=== PATIENT | female | born 1995 | race Caucasian/White ===

== ENCOUNTER 2021-07-12 12:19 | Outpatient (CLI) | payer BC, MEDICAID, SELFPAY ==
[2021-07-12 13:55] LABS: Absolute Lymphocyte Count 2.26 X10^3/uL (0.83-4.51); Absolute Neutrophil Count 6.6 X10^3/uL (2.0-7.7); Basophil# 0.02 X10^3/uL; Basophil% 0.2 % (0-1); Color, Urine Yellow (Yellow); Eosinophil# 0.16 X10^3/uL; Eosinophils% 1.7 % (0-5); Glucose, Dipstick Normal (Normal); Hematocrit 38.3 % (37-47); Hemoglobin 13.4 g/dL (12.0-15.0); Ketone-Dipstick Negative (Negative); Leukocyte Esterase-Dipstick 25 /ul (Negative); Lymphocyte # 2.26 X10^3/ul (0.83-4.51); Lymphocyte % 23.5 % (19-41); Mean Platelet Vol. 9.1 fl (6.2-12.0); Monocyte# 0.52 X10^3/uL; Monocyte% 5.4 % (0-10); NRBC Flagged by Analyzer 0 % (0-5); Neutrophil # 6.62 X10^3/uL (2.7-7.7); Nitrite-Dipstick Negative (Negative); Occult Blood-Urine Negative /ul (Negative); Platelet Count 237 K/mm3 (150-450); Protein-Dipstick Negative (Negative); RBC Distribution Width CV 12.7 % (11.6-14.6); RBC Distribution Width SD 36.3 fl (35.1-43.9); Red Blood Count 4.79 M/mm3 (4.2-5.4); Specific Gravity, Urine 1.015 (1.002-1.030); Urine Bilirubin Dipstick Negative (Negative); Urine Clarity Clear (Clear); Urine Urobilinogen Normal (Normal); White Blood Count 9.6 K/mm3 (4.4-11.0)
[2021-07-12 14:08] LABS: Amphetamine Urine VISTA NEGATIVE (<1000 ng/mL); Barbiturate Urine VISTA NEGATIVE (< 200 ng/mL); Benzodiazepine Urine VISTA NEGATIVE (< 200 ng/mL); Cocaine Urine VISTA NEGATIVE (< 300 ng/mL); Ecstacy Urine VISTA NEGATIVE (< 500 ng/mL); Methadone Urine VISTA NEGATIVE (< 300 ng/mL); PCP Urine VISTA NEGATIVE (< 25 ng/mL); THC Urine VISTA POSITIVE (< 50 ng/mL); Vista UDS pH Range 6
[2021-07-12 15:39] LABS: HIV - WCH Non-Reactive (Nonreactive); Hepatitis B Surface Antigen Non-Reactive (Nonreactive); Hepatitis C Antibody Non-Reactive (Nonreactive); Rubella IgG Reactive (Nonreactive); Syphilis Antibodies Non-reactive
[2021-07-16 07:07] LABS: Chlamydia By Nucleic Acid AMP Negative (Negative)
[2021-07-16 13:34] LABS: Gonococcus By Nucleic Acid AMP Negative (Negative)
[2021-07-19 14:30] LABS: HPV Reflexed? NOT INDICATED
== END 2021-07-12 23:59 | disposition home or self-care (01) ==
LOC: WOBLAB 12:23
PROVIDERS: Visit Provider Obstetrics & Gynecology
DX: Z34.81 Encounter for supervision of other normal pregnancy, first trimester (principal); Z12.4 Encounter for screening for malignant neoplasm of cervix; Z11.3 Encounter for screening for infections with a predominantly sexual mode of transmission
CPT/HCPCS: 36415; 80307; 81002; 84443; 85025; 86703; 86762; 86780; 86803; 87086; 87088; 87340; 87491; 87591; 88175; G0145

== ENCOUNTER → 2021-11-09 | Outpatient (CLI) | payer BC, MEDICAID, SELFPAY ==
[2021-11-09 12:42] LABS: Hematocrit 36.3 % (37-47); Mean Corp Hgb Conc 33.1 g/dL (32-36); Mean Corpuscular Volume 78.7 fL (81-99); Mean Platelet Vol. 9.1 fl (6.2-12.0); Platelet Count 217 K/mm3 (150-450); RBC Distribution Width CV 13.8 % (11.6-14.6); RBC Distribution Width SD 39.1 fl (35.1-43.9); Red Blood Count 4.61 M/mm3 (4.2-5.4); White Blood Count 9.7 K/mm3 (4.4-11.0)
[2021-11-09 12:49] LABS: Glucose Challenge Gest 1H 50g 174 mg/dL (70-140)
== END | disposition home or self-care (01) ==
PROVIDERS: Visit Provider Student in an Organized Health Care Education/Training Program
DX: Z34.83 Encounter for supervision of other normal pregnancy, third trimester (principal)
CPT/HCPCS: 36415; 82950; 85027

== ENCOUNTER → 2021-11-13 | Outpatient (CLI) | payer BC, MEDICAID, SELFPAY ==
[2021-11-13 09:24] LABS: Glucose GTT-Gestation. Fasting 86 mg/dL (<105)
[2021-11-13 11:05] LABS: Glucose GTT-Gestational 1 Hr 184 mg/dL (<190)
[2021-11-13 12:23] LABS: Glucose GTT-Gestational 3 Hr 121 L (<145)
[2021-11-13 12:23] LABS: Glucose GTT-Gestational 2 Hr 158 mg/dL (<165)
== END | disposition home or self-care (01) ==
PROVIDERS: Visit Provider Student in an Organized Health Care Education/Training Program
DX: O24.912 Unspecified diabetes mellitus in pregnancy, second trimester (principal); Z3A.00 Weeks of gestation of pregnancy not specified
CPT/HCPCS: 36415; 82951; 82952

== ENCOUNTER 2022-01-10 12:15 | Outpatient (CLI) | payer BC, MEDICAID, SELFPAY ==
[2022-01-10] VITALS (11 sets, daily range): BP systolic 130–153; BP diastolic 80–94; PULSE 85–111; TEMP 36.8; BMI 39.9
[2022-01-10 13:11] LABS: Hematocrit 35.5 % (37-47); Hemoglobin 11.7 g/dL (12.0-15.0); Mean Corpuscular Hgb 25.2 pg (27.0-32.0); Mean Corpuscular Volume 76.3 fL (81-99); Mean Platelet Vol. 9.1 fl (6.2-12.0); Platelet Count 204 K/mm3 (150-450); RBC Distribution Width CV 14.8 % (11.6-14.6); RBC Distribution Width SD 40.2 fl (35.1-43.9); Red Blood Count 4.65 M/mm3 (4.2-5.4); White Blood Count 10.5 K/mm3 (4.4-11.0)
[2022-01-10 13:35] LABS: Creatinine, Urine (random) < 13.00 mg/dL (NO RANGE EST.); Protein, Urine (Random) < 6.0 mg/dL (<11.9)
[2022-01-10 13:46] LABS: AST(SGOT) 11 U/L (15-37); Alanine Aminotransfer ALT/SGPT 13 U/L (13-56); Creatinine, Serum 0.53 mg/dL (0.55-1.02); EST Glomerular Filtration Rate 148 mL/min (>60); Est Glom Filt Rate - Afr Amer 179 mL/min (>60); Uric Acid 4.6 mg/dL (2.6-6.0)
--- NOTE | 2022-01-10 18:03 | OB.TRI.NOTE ---
HPI - General HPI Narrative ANN VALDEZ, is a 26 F who presents with elevated Blood pressures PFSH PFSH Home Medications vits,calcium no.78-iron fumarate-folic acid 29 mg-1 mg tablet (Prenatabs FA) 1 tab PO DAILY supplement 04/18/16 [History Last Taken 01/10/22] Allergy/AdvReac Type Severity Reaction Status Date / Time No Known Allergies Allergy Verified 01/10/22 14:45 Social History Smoking Status: Light Smoker (<10/day) History Elective abortions Hx Para 0 Spontaneous abortions Hx # Term Pregnancies Ectopic pregnancies Hx # Pregnancies Multiple births # of living children Assessment & Plan (1) : PLAN: Pt with 36wk elevated BP's non severe range. labs within normal limits. Asymptomatic. Okay to discharge home with precautions
== END 2022-01-10 15:47 | disposition home or self-care (01) ==
LOC: WPOUT 12:21 → WP 12:21
PROVIDERS: Student in an Organized Health Care Education/Training Program; Visit Provider Obstetrics & Gynecology
DX: O26.893 Other specified pregnancy related conditions, third trimester (principal); R03.0 Elevated blood-pressure reading, without diagnosis of hypertension; O99.333 Smoking (tobacco) complicating pregnancy, third trimester; F17.210 Nicotine dependence, cigarettes, uncomplicated; Z3A.36 36 weeks gestation of pregnancy
CPT/HCPCS: 36415; 59025; 59050; 82565; 82570; 84156; 84450; 84460; 84550; 85027; 87081; 87086; 87088; 99218; G0378

== ENCOUNTER 2022-01-18 06:50 | Inpatient (IN) | payer BC, MEDICAID, SELFPAY ==
[2022-01-18] VITALS (38 sets, daily range): BP systolic 124–181; BP diastolic 58–96; PULSE 66–229; TEMP 36.1–36.6; O2SAT 80–98; BMI 40.4
--- NOTE | 2022-01-18 07:16 | HP.PCM.OB_ITS ---
History and Physical Date of Admission: 01/18/22 HPI: 26-year-old G2, P1 at 37/1 weeks, THOM 02/07/2022 by first trimester ultrasound, admitted for induction of labor for gestational hypertension. Denies regular contractions, leaking of fluid, vaginal bleeding. Reports movement. Denies headache, vision changes, chest pain or shortness of breath, nausea or vomiting, diarrhea constipation, fevers or chills. 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 40-week G2: Current Medical history: Denies Surgical history: 1. Tonsillectomy Medications: 1. vitamin Allergies: No known drug allergies, allergic to grape juice Social history: Former smoker, denies alcohol or drug use Family history: Noncontributory Review of system: Negative otherwise stated above Physical exam: Vitals pending General: No acute distress HEENT: Normal cephalic/atraumatic, PERRLA Cardiorespiratory: No increased effort Abdomen: Soft, nontender, gravid Extremities: +1 pedal edema Musculoskeletal: Strength 5 out of 5 throughout all extremities Neurologic: Cranial nerves II through XII grossly intact, no focal deficits Cervical exam: 1 cm/50/-3 yesterday in office heart rate/toco pending panel: Syphilis negative Hepatitis B/hepatitis C negative HIV negative Gonorrhea/chlamydia negative Rubella immune A positive GBS negative on 01/10 Labs pending today: CBC, T&S, CMP Assessment/plan:26-year-old G2, P1 at 37/1 weeks, THOM 02/07/2022 by first trimester ultrasound, admitted for induction of labor for gestational hypertension. ?Admit to labor and delivery ? GBS negative ? Induction of labor with Pitocin ? Gestational hypertension: Add CMP to admission labs. no signs or symptoms of preeclampsia at this time. Assessment & Plan Assessment/Plan (1) Gestational hypertension:
[2022-01-18] MEDS: Lactated Ringers 1,000 ML 50 ML IV (08:09)
[2022-01-18 08:13] LABS: Absolute Lymphocyte Count 1.69 X10^3/uL (0.83-4.51); Basophil# 0.02 X10^3/uL; Basophil% 0.2 % (0-1); Eosinophil# 0.11 X10^3/uL; Eosinophils% 1.1 % (0-5); Hematocrit 34.9 % (37-47); Hemoglobin 11.7 g/dL (12.0-15.0); Lymphocyte # 1.69 X10^3/ul (0.83-4.51); Lymphocyte % 17.6 % (19-41); Mean Corp Hgb Conc 33.5 g/dL (32-36); Mean Corpuscular Hgb 25.8 pg (27.0-32.0); Mean Platelet Vol. 8.8 fl (6.2-12.0); Monocyte# 0.71 X10^3/uL; Monocyte% 7.4 % (0-10); NRBC Flagged by Analyzer 0 % (0-5); Neutrophil # 7.01 X10^3/uL (2.7-7.7); Neutrophil % 72.9 % (47-70); Platelet Count 203 K/mm3 (150-450); RBC Distribution Width CV 15.2 % (11.6-14.6); RBC Distribution Width SD 41.7 fl (35.1-43.9); Red Blood Count 4.53 M/mm3 (4.2-5.4); White Blood Count 9.6 K/mm3 (4.4-11.0)
[2022-01-18] MEDS: Oxytocin 30 units/NS 500 ml 30 UNITS/500 ML IV.SOLN IV (08:14)
[2022-01-18 08:35] LABS: ALB/GLOB Ratio 0.6 RATIO (0.9-2.4); AST(SGOT) 11 U/L (15-37); Alanine Aminotransfer ALT/SGPT 14 U/L (13-56); Albumin, Serum 2.3 g/dL (3.2-5.0); Alkaline Phosphatase 77 U/L (45-117); Anion Gap 9 (5-15); BUN 9 mg/dL (7-18); BUN/Creat Ratio 16.5 RATIO (10-20); Calcium,Total 9.1 mg/dL (8.5-10.1); Chloride 106 mmol/L (98-107); Creatinine, Serum 0.55 mg/dL (0.55-1.02); EST Glomerular Filtration Rate 143 mL/min (>60); Est Glom Filt Rate - Afr Amer 174 mL/min (>60); Glucose 115 mg/dL (74-106); LDH 153 U/L (84-246); Potassium 3.7 mmol/L (3.5-5.1); Protein, Total 6.3 g/dL (6.4-8.2); Sodium Level 137 mmol/L (136-145)
[2022-01-18 10:02] LABS: Amphetamine Urine VISTA NEGATIVE (<1000 ng/mL); Barbiturate Urine VISTA NEGATIVE (< 200 ng/mL); Benzodiazepine Urine VISTA NEGATIVE (< 200 ng/mL); Cocaine Urine VISTA NEGATIVE (< 300 ng/mL); Ecstacy Urine VISTA NEGATIVE (< 500 ng/mL); Methadone Urine VISTA NEGATIVE (< 300 ng/mL); PCP Urine VISTA NEGATIVE (< 25 ng/mL); THC Urine VISTA NEGATIVE (< 50 ng/mL); Vista UDS pH Range 6
--- NOTE | 2022-01-18 18:18 | PCM.PN.OB ---
Subjective Subjective Patient comfortable without epidural Objective Data Objective Data Vital Signs: Vital Signs Temp Pulse BP Pulse Ox 97.6 F L 74 129/72 H 98 01/18/22 17:37 01/18/22 17:37 01/18/22 17:37 01/18/22 07:30 Weight: 242 lb 15.19 oz Body Mass Index (BMI) 40.4 Intake & Output: Intake and Output for Last 24 Hours 01/16/22 01/17/22 01/18/22 23:59 23:59 23:59 Intake Total 780.94 / 780.94 Output Total 1250 / 1250 Balance -469.06 / -469.06 Lab / Micro Data Result Diagrams: 01/18/22 07:55 01/18/22 07:55 Labs: Laboratory Results - last 24 hr 01/18/22 07:55: WBC 9.6, RBC 4.53, Hgb 11.7 L, Hct 34.9 L, MCV 77.0 L, MCH 25.8 L, MCHC 33.5, RDW Std Deviation 41.7, RDW Coeff of Joshua 15.2 H, Plt Count 203, MPV 8.8, Immature Gran % (Auto) 0.800, Neut % (Auto) 72.9 H, Lymph % (Auto) 17.6 L, [place] % (Auto) 7.4, Eos % (Auto) 1.1, Baso % (Auto) 0.2, Absolute Neuts (auto) 7.0, Absolute Lymphs (auto) 1.69, Nucleated RBC % 0 01/18/22 07:55: Blood Type A POSITIVE, Antibody Screen NEGATIVE 01/18/22 07:55: Sodium 137, Potassium 3.7, Chloride 106, Carbon Dioxide 22.0, Anion Gap 9, BUN 9, Creatinine 0.55, Estim Creat Clear Calc 140.70, Est GFR (MDRD) Af Amer 174, Est GFR (MDRD) Non-Af 143, BUN/Creatinine Ratio 16.5, Glucose 115 H, Calcium 9.1, Total Bilirubin 0.20, AST 11 L, ALT 14, Alkaline Phosphatase 77, Lactate Dehydrogenase 153, Total Protein 6.3 L, Albumin 2.3 L, Globulin 4.0, Albumin/Globulin Ratio 0.6 L 01/18/22 09:00: Urine Opiates Screen NEGATIVE, Urine Methadone Screen NEGATIVE, Ur Barbiturates Screen NEGATIVE, Ur Phencyclidine Scrn NEGATIVE, Ur Amphetamines Screen NEGATIVE, MDMA (Ecstasy) Screen NEGATIVE, U Benzodiazepines Scrn NEGATIVE, Urine Cocaine Screen NEGATIVE, U Cannabinoids Screen NEGATIVE, Ur Drug Screen Comment Micro: Microbiology 01/18/22 07:45 Nasal Secretion SARS-CoV-2 Antigen (Rapid) - Final Physical Exam Const alert, oriented x3, no apparent distress, average body habitus, healthy appearing and well nourished HEENT normocephalic and moist oral mucous membranes Eyes PERRL Neck full ROM Resp normal respiratory effort, no retractions and no use of accessory muscles GI GI Narrative: Soft, nontender, good Narrative: Cervical exam /-3. AROM clear fluid Extremity normal to inspection, full ROM and no clubbing, cyanosis or edema Neuro moves all extremities and no focal motor deficits Psych mental status grossly normal, affect normal, speech normal and activity/motor behavior normal Assessment & Plan (1) : PLAN: Patient seen and examined. Patient comfortable without epidural. AROM clear fluid. Continue titrate Pitocin
[2022-01-18] MEDS: LACTATED RINGERS 500 ML 999 ML IV (22:41)
[2022-01-18] MEDS: Lactated Ringers 1,000 ML 200 ML IV (23:47)
[2022-01-18] MEDS: fentaNYL-bupivacaine (epidural) 100 ML BAG EPIDURAL (23:49)
[2022-01-19] VITALS (45 sets, daily range): BP systolic 125–173; BP diastolic 64–93; PULSE 75–119; RESP 16–18; TEMP 36.2–36.5; O2SAT 79–100
[2022-01-19] MEDS: LACTATED RINGERS 500 ML 999 ML IV (02:33)
[2022-01-19] MEDS: Oxytocin 30 units/NS 500 ml 30 UNITS/500 ML IV.SOLN 334 UNITS IV (02:57)
--- NOTE | 2022-01-19 03:06 | EX.PCM.OBRPT ---
Vaginal Delivery Findings Description of Procedure: Normal spontaneous vaginal delivery of a viable female infant, vertex BRUNA. Head and shoulders delivered with ease. Cord cut clamped. Baby handed off to patient. Placenta delivered via cord traction and fundal massage. IV oxytocin, IM Methergine given prophylactically for quick and second stage. No lacerations noted. EBL 250 cc Apgars 7/9
[2022-01-19] MEDS: Methylergonovine 0.2 MG/ML Ampul IM (04:14)
[2022-01-19] MEDS: Acetaminophen 500 MG Tablet 1000 MG PO (04:36)
[2022-01-19] MEDS: Senna/Docusate Sodium 1 Tablet PO (10:24)
[2022-01-19] MEDS: Ibuprofen 600 MG Tablet PO ×2 (10:53→17:45)
[2022-01-20] VITALS (7 sets, daily range): BP systolic 139–145; BP diastolic 68–83; PULSE 68–82; RESP 16–18; TEMP 36.2–36.3; O2SAT 98
[2022-01-20] MEDS: Ibuprofen 600 MG Tablet PO (00:21)
--- NOTE | 2022-01-20 10:11 | PCM.DC.BLA ---
Discharge Summary Date of Admission: 01/18/22 Date of Discharge: 01/20/22 Summary: Patient arrived on 01/18/2022 for induction of labor with gestational hypertension. Subsequently delivered vaginally on 01/19/2022. Nonsevere range blood pressures labs within normal limits and asymptomatic. Discharged home on labetalol 100 mg twice daily. For at home blood pressure checks, discussed blood pressure ranges signs and symptoms of preeclampsia. To follow-up within 1 week for blood pressure check Meaningful Use Info Meaningful Use Diagnoses (Choose all that apply): None applicable Discharge Plan Admission Admit Date/Time: 01/18/22 06:50 Primary Reason for Your Visit: Induction of labor gestational hypertension Attending Provider: Michael Gil Primary Care Provider: Care PhysicianNatali Primary Instructions Additional Instructions / Restrictions: Regular diet. Weightbearing as tolerated. Okay to shower. No intercourse for 4 to 6 weeks. Call if chest pain, shortness of breath, visual changes, right upper quadrant pain. Follow-up blood pressure check within 1 week Discharge Orders/Prescriptions Prescriptions: New labetalol 100 mg tablet 100 mg PO BID Qty: 60 1RF Continued Prenatabs FA 1 TABLET tablet 1 tab PO DAILY Referrals / Follow Up: Care Physician,Natali Primary [Primary Care Provider] - Disposition Disposition (needs filled in before D/C Order can be placed): Home, Self Care
--- NOTE | 2022-01-20 10:12 | PCM.PN.OB ---
Subjective Subjective No overnight complaint. Denies headache, visual changes, chest pain, shortness of breath, nausea vomit, and upper quadrant pain. Objective Data Objective Data Vital Signs: Vital Signs Temp Pulse Resp BP Pulse Ox O2 Del Method 97.1 F L 82 16 140/81 H 98 Room Air 01/20/22 08:59 01/20/22 09:01 01/20/22 08:59 01/20/22 09:01 01/20/22 04:00 01/20/22 08:59 Oxygen Delivery Method Room Air Weight: 242 lb 15.19 oz Body Mass Index (BMI) 40.4 Intake & Output: Intake and Output for Last 24 Hours 01/18/22 01/19/22 01/20/22 23:59 23:59 23:59 Intake Total 2207.61 / 2207.61 1754.16 / 1754.16 Output Total 1600 / 2000 1300 / 1300 Balance 607.61 / 207.61 454.16 / 454.16 Lab / Micro Data Result Diagrams: 01/18/22 07:55 01/18/22 07:55 Micro: Microbiology 01/18/22 07:45 Nasal Secretion SARS-CoV-2 Antigen (Rapid) - Final Physical Exam Const alert, oriented x3, no apparent distress, average body habitus, healthy appearing and well nourished HEENT normocephalic and moist oral mucous membranes Eyes PERRL Neck full ROM Resp normal respiratory effort, no retractions and no use of accessory muscles GI GI Narrative: Soft, nontender, uterus firm below umbilicus Extremity normal to inspection, full ROM and no clubbing, cyanosis or edema Neuro moves all extremities and no focal motor deficits Psych mental status grossly normal, affect normal, speech normal and activity/motor behavior normal Assessment & Plan (1) : PLAN: day 1. Breast-feeding. Pain well controlled. Gestational hypertension asymptomatic, labs within normal limits. Blood pressures nonsevere range. We will send home on labetalol 100 mg twice daily. At home blood pressures to be taken, given parameters. Discussed signs and symptoms of preeclampsia. Okay to discharge home today
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
--- NOTE | 2022-01-24 13:08 | NURSING ---
Follow up phone call completed. Mother is feeling well and reports her bleeding is minimal. No concerns of headache, vision changes, flu like symptoms, or emotional changes. Mother understands all of her discharge instructions and has no questions at this time. Baby is eating/ very well. Has had appointment with our department.
== END 2022-01-20 11:20 | disposition home or self-care (01) | DRG 807 ==
PROVIDERS: Student in an Organized Health Care Education/Training Program; Admitting Provider Obstetrics & Gynecology; Referring Provider Obstetrics & Gynecology; Visit Provider Obstetrics & Gynecology
DX: O13.4 Gestational [pregnancy-induced] hypertension without significant proteinuria, complicating childbirth (principal); Z37.0 Single live birth; E66.01 Morbid (severe) obesity due to excess calories; F17.290 Nicotine dependence, other tobacco product, uncomplicated; Z3A.37 37 weeks gestation of pregnancy; O99.334 Smoking (tobacco) complicating childbirth; O99.214 Obesity complicating childbirth
CPT/HCPCS: 59025; 59050; 80053; 80307; 83615; 85025; 86850; 86900; 86901; 87426; 99218; 99406; J7120; G0378